=== PATIENT | female | born 1990 | race African-American/Black ===

== ENCOUNTER 2018-05-31 21:40 | Inpatient (IN) | payer OTHER ==
[2018-05-31 22:13] VITALS: BMI 32.8
--- NOTE | 2018-05-31 22:13 | PDOC.LDHP ---
Labor and Delivery H&P Chief complaint: contractions HPI: 27 y/o at 38w4d, patient of Dr. Marr, presents with ctx since yesterday after she was checked in the office. SVE at that time was 2cm. Denies VB, LOF, or decreased FM. ROS neg for HEENT, CV, pulm, GI, , neuro, psych, skin, musculoskeletal, or constitutional symptoms other than mentioned above. OB History Details: 2 prior term SVDs Current complications: none Past Medical History: None Current medications: pre-marva vitamins Previous surgical history: none Allergies/Adverse Reactions: Allergies Allergy/AdvReac Type Severity Reaction Status Date / Time No Known Allergies Allergy Verified 05/31/18 22:05 Social history: none - Physical Exam Vital signs reviewed and normal: yes General: NAD, resting Lungs: nonlabored breathing Abdomen: gravid Extremeties: no edema FHT: category 2 (160s, min to mod variability, +accel, ?decels) Hooper contractions every: 2 mins - Vaginal Exam cm dilated: 4 Effacement: 75% Station: -2 - OB Labs GBS: positive - Assessment L&D Assessment: term patient in labor tachycardia despite liter bolus. Admit for labor/augmentation. - Plan Plan: admit to L&D, labor augmentation if indicated, GBS antibiotic prophylaxis , informed consent obtained, anesthesia consult for pain management
[2018-05-31] MEDS ORDERED: Ondansetron PF 4 MG/2 ML Vial IVP PRN (23:51)
[2018-05-31] MEDS ORDERED: HYDROcodone/Acetaminophen 5/325 mg Tablet PO PRN ×2 (23:51)
[2018-05-31] MEDS ORDERED: Lidocaine 1% (PF) 30 ML VIAL SC PRN (23:51)
[2018-05-31] MEDS ORDERED: Carboprost 250 MCG/ML AMP IM PRN (23:51)
[2018-05-31] MEDS ORDERED: Promethazine HCl 25 MG/ML VIAL IM PRN (23:51)
[2018-05-31] MEDS ORDERED: Acetaminophen 500 MG TAB PO PRN (23:51)
[2018-05-31] MEDS ORDERED: Misoprostol 200 MCG TAB PR PRN (23:51)
[2018-05-31] MEDS ORDERED: Diphenoxylate HCl/Atropine Tablet PO PRN ×2 (23:51)
[2018-05-31] MEDS ORDERED: Methylergonovine 0.2 MG/ML VIAL IM PRN (23:51)
[2018-05-31] MEDS ORDERED: Butorphanol Tartrate 1 MG/ML VIAL SLOW IVP PRN (23:51)
[2018-05-31] MEDS ORDERED: Ibuprofen 800 MG TAB PO PRN (23:51)
[2018-06-01 00:06] LABS: Hemoglobin 10.4 g/dL (12.0-16.0); Mean Corpuscular HGB CONC 31.8 g/dL (32.0-36.0); Mean Corpuscular Hemoglobin 25.3 pg (27.0-31.0); Mean Corpuscular Volume 79.6 fL (78.0-98.0); Mean Platelet Volume 10.3 fL (7.4-10.4); Platelet Count 259 thou/uL (130-400); RBC Distribution Width 18.9 % (11.5-14.5); Red Blood Cell (RBC) Count 4.11 mill/uL (4.20-5.40); White Blood Cell (WBC) Count 12.7 thou/uL (4.8-10.8)
[2018-06-01] MEDS ORDERED: Penicillin G Potassium 5 MILL.UNITS in Sodium Chloride 0.9% 100 ML IVPB SCH (00:30)
[2018-06-01 00:46] LABS: Syphilis Antibody Nonreactive (Nonreactive); Syphilis Antibody Index 0.04 S/CO (<1.00 Non-Reactive)
[2018-06-01] MEDS: Lactated Ringer's 1,000 ML IV SCH ×2 (01:16→10:00)
[2018-06-01 01:28] LABS: HBSAg Index 0.18 S/CO (0-0.99); Hep B Surf Ag Non-Reactive S/CO (NonReactive)
[2018-06-01] MEDS ORDERED: NS w/ Oxytocin 10 units 500 ML IVPB SCH (03:00)
[2018-06-01] MEDS ORDERED: Fentanyl 4 mcg/Bup 0.1% Cadd 100 ML ONE (03:50)
[2018-06-01] MEDS ORDERED: Lidocaine 1.5% w/Epi 1:200K 30 ML VIAL (Epid Use) ONE (04:02)
[2018-06-01] MEDS: Penicillin G 2.5 MILL.units 2.5 MILL.UNITS in Premix Bag 1 BAG IVPB SCH ×3 (05:18→15:42)
[2018-06-01] MEDS ORDERED: Acetaminophen 325 MG TAB PO PRN (05:20)
[2018-06-01] MEDS ORDERED: Eucerin (Mineral Oil/Petrolatum,White) 30 gm Jar TOP PRN (05:20)
[2018-06-01] MEDS ORDERED: diphenhydrAMINE 50 MG/ML VIAL IVP PRN (05:20)
[2018-06-01] MEDS ORDERED: Lactated Ringer's 500 ML IV PRN (05:20)
[2018-06-01] MEDS ORDERED: Ondansetron PF 4 MG/2 ML Vial IVP PRN ×2 (05:20→15:33)
[2018-06-01] MEDS ORDERED: Naloxone HCl 0.4 mg/ml Vial IVP PRN ×2 (05:20)
[2018-06-01] MEDS ORDERED: Promethazine HCl 25 MG/ML VIAL IM PRN (05:20)
[2018-06-01] MEDS ORDERED: ePHEDrine/0.9% NaCl/PF SYRINGE 50 mg/10 ml SLOW IVP PRN (05:20)
[2018-06-01] MEDS ORDERED: Fentanyl 4 mcg/Bupivacaine 0.1% Cassette 100 ML EPIDURAL SCH (05:30)
[2018-06-01] MEDS ORDERED: Communication Order-Pharmacy FS SCH (05:30)
[2018-06-01 05:54] LABS: Amphetamine Not Detected (NotDetected); Barbiturates Screen Not Detected (NotDetected); Benzodiazepine Screen Not Detected (NotDetected); Cocaine Metabolite Screen Not Detected (NotDetected); Medtox Control Line Valid? VALID (VALID); Medtox Reader # READER 4; Methadone Not Detected (NotDetected); Methamphetamine Not Detected (NotDetected); Opiate Screen Not Detected (NotDetected); Oxycodone Screen Not Detected (NotDetected); Phencyclidine (PCP) Not Detected (NotDetected); THC/Cannabinoid Screen Not Detected (NotDetected); Tricyclic Screen Not Detected (NotDetected)
[2018-06-01] MEDS ORDERED: Famotidine/PF 20 mg/2ml Vial ONE (10:26)
[2018-06-01] MEDS ORDERED: Famotidine 20 MG TAB PO SCH ×2 (10:45→21:00)
[2018-06-01] MEDS ORDERED: Bupivacaine HCl 0.5%/Epinephrine 1:200,000/PF 30 ml Vial ONE (11:11)
[2018-06-01] MEDS ORDERED: ePHEDrine/0.9% NaCl/PF SYRINGE 50 mg/10 ml ONE (11:11)
[2018-06-01] MEDS: NS / Oxytocin 40 units/1000ml 1,000 ML IV PRN ×2 (12:54→14:35)
[2018-06-01] MEDS ORDERED: Milk Of Magnesia 30 ML UDCUP PO PRN (15:33)
[2018-06-01] MEDS ORDERED: Benzocaine/Menthol 20-0.5% 60 ML CAN TOP PRN (15:33)
[2018-06-01] MEDS ORDERED: HYDROcodone/Acetaminophen 5/325 mg Tablet PO PRN (15:33)
[2018-06-01] MEDS ORDERED: diphenhydrAMINE 25 MG CAP PO PRN (15:33)
[2018-06-01] MEDS ORDERED: Lanolin Ointment 7 GM TUBE TOP PRN (15:33)
[2018-06-01] MEDS ORDERED: NS / Oxytocin 40 units/1000ml 1,000 ML IV SCH (15:33)
[2018-06-01] MEDS ORDERED: Bisacodyl 10 MG SUPP PR PRN (15:33)
[2018-06-01] MEDS: Ferrous Sulfate 325 MG TAB PO SCH (16:32)
[2018-06-01] MEDS: Ibuprofen 800 MG TAB PO SCH ×2 (16:36→19:28)
[2018-06-01] MEDS: Docusate Calcium (SURFAK) 240 MG CAP PO SCH (19:28)
[2018-06-02] MEDS: Ibuprofen 800 MG TAB PO SCH ×2 (03:07→14:15)
[2018-06-02] MEDS: HYDROcodone/Acetaminophen 5/325 mg Tablet PO PRN ×3 (03:11→17:18)
[2018-06-02 03:42] VITALS: TEMP 98.4
[2018-06-02 05:58] LABS: Hemoglobin 9.7 g/dL (12.0-16.0); Mean Corpuscular HGB CONC 31.3 g/dL (32.0-36.0); Mean Corpuscular Hemoglobin 25.4 pg (27.0-31.0); Mean Corpuscular Volume 81.2 fL (78.0-98.0); Mean Platelet Volume 9.9 fL (7.4-10.4); Platelet Count 225 thou/uL (130-400); RBC Distribution Width 18.9 % (11.5-14.5); Red Blood Cell (RBC) Count 3.82 mill/uL (4.20-5.40); White Blood Cell (WBC) Count 12.5 thou/uL (4.8-10.8)
[2018-06-02] MEDS ORDERED: Prenatal Vitamin 1 TAB PO SCH (09:00)
[2018-06-02] MEDS: Ferrous Sulfate 325 MG TAB PO SCH ×2 (09:34→17:18)
[2018-06-02] MEDS: Docusate Calcium (SURFAK) 240 MG CAP PO SCH (09:34)
[2018-06-02 10:35] VITALS: BP 99/60
== END 2018-06-02 18:49 | disposition home or self-care (01) | DRG 807 ==
LOC: L&D/OP 21:40 → L&D 23:57 → 3SW 06-01 15:23
PROVIDERS: ADMIT Family Medicine; ATTEND Family Medicine
PROC: 10907ZC Drainage of Amniotic Fluid, Therapeutic from Products of Conception, Via Natural or Artificial Opening (ICD-10-PCS; 2018-05-31)
PROC: 3E033VJ Introduction of Other Hormone into Peripheral Vein, Percutaneous Approach (ICD-10-PCS; 2018-05-31)
PROC: 10E0XZZ Delivery of Products of Conception, External Approach (ICD-10-PCS; principal; 2018-06-01)
DX: O75.89 Other specified complications of labor and delivery (principal); Z37.0 Single live birth; Z3A.38 38 weeks gestation of pregnancy; R55 Syncope and collapse
CPT/HCPCS: 36415; 36416; 51702; 80306; 85027; 86780; 86850; 86900; 86901; 87340; 93005; 93010; 99285; J0670; J2001; J2405; J2540; J7050; S0028

== ENCOUNTER 2018-07-16 08:05 | Day surgery (SDC) | payer OTHER ==
[2018-07-15 13:15] VITALS: BMI 29.8
[2018-07-16] MEDS ORDERED: Ketorolac Tromethamine 30 MG/ML VIAL ONE (08:20)
[2018-07-16 09:32] LABS: #Basophils 0.1 thou/uL (0.0-0.2); #Eosinphils 0.1 thou/uL (0.0-0.7); #Lymphocytes 2.3 thou/uL (1.20-3.40); #Monocytes 0.5 thou/uL (0.11-0.59); #Neutrophils 4.2 thou/uL (1.40-6.50); %Basophils 1.1 % (0.0-1.0); %Lymphocytes 32.3 % (21.0-51.0); %Monocytes 6.3 % (0.0-10.0); %Neutrophils 58.3 % (42.0-75.0); Hemoglobin 12.2 g/dL (12.0-16.0); Mean Corpuscular HGB CONC 31.2 g/dL (32.0-36.0); Mean Corpuscular Hemoglobin 26.5 pg (27.0-31.0); Mean Corpuscular Volume 84.9 fL (78.0-98.0); Mean Platelet Volume 11.5 fL (7.4-10.4); Platelet Count 210 thou/uL (130-400); Red Blood Cell (RBC) Count 4.59 mill/uL (4.20-5.40); White Blood Cell (WBC) Count 7.2 thou/uL (4.8-10.8)
[2018-07-16 09:45] LABS: Anion Gap 13 mmol/L (10-20); BUN (Urea Nitrogen) 14 mg/dL (7.0-18.7); Calc. Creatinine Clearance 125 mL/min (70-130); Calcium 9.4 mg/dL (7.8-10.44); Carbon Dioxide 26 mmol/L (22-29); Chloride 105 mmol/L (98-107); Estimated GFR-MDRD Greater than 90; Glucose 84 mg/dL (70-105); Potassium 4.1 mmol/L (3.5-5.1); Sodium 140 mmol/L (136-145)
[2018-07-16] MEDS ORDERED: Bupivacaine/Epinephrine 0.25% 30 ML VIAL ONE (09:53)
[2018-07-16] MEDS ORDERED: Fentanyl 100 MCG/2 ML VIAL ONE (10:10)
[2018-07-16] MEDS ORDERED: Ondansetron HCl/PF 4 MG/2 ML Vial IVP PRN (11:30)
[2018-07-16] MEDS ORDERED: Promethazine HCl 25 MG/ML VIAL IM/IV PRN (11:30)
[2018-07-16] MEDS ORDERED: HYDROcodone/Acetaminophen 5/325 mg Tablet ONE (12:32)
[2018-07-16] MEDS ORDERED: Ondansetron PF 4 MG/2 ML Vial ONE (12:59)
[2018-07-16] MEDS ORDERED: Dexamethasone 20 MG/5 ML VIAL ONE (12:59)
[2018-07-16] MEDS ORDERED: PROPOFOL 200 MG/20 ML VIAL ONE (12:59)
[2018-07-16] MEDS ORDERED: Lidocaine 1% PF 5 ML VIAL ONE (12:59)
[2018-07-16] MEDS ORDERED: Ondansetron ODT 4 MG TAB ONE (13:27)
--- NOTE | 2018-07-17 00:34 | OP ---
DATE OF PROCEDURE: 07/16/2018 PREOPERATIVE DIAGNOSIS: Incarcerated umbilical hernia. POSTOPERATIVE DIAGNOSIS: Incarcerated umbilical hernia. OPERATION PERFORMED: Repair of incarcerated umbilical hernia with mesh patch using a 4.3 cm Ventralex mesh patch. ANESTHESIA: General endotracheal. INDICATIONS: The patient is a 27-year-old black female. She has an infraumbilical mass that was easily palpable and not reducible consistent with a hernia. She was taken to the operating at this time for repair. DESCRIPTION OF OPERATION: Informed consent was obtained. The patient was taken to the operating room where general endotracheal anesthesia was obtained with the patient in supine position. Abdomen was prepped with ChloraPrep, draped in sterile fashion. Local anesthetic was infiltrated using 0.25% Marcaine with epinephrine. A curvilinear infraumbilical incision was created. Dissection was carried through skin and subcutaneous tissue. There was a large hernia mass just below the skin. This was on the inferior aspect of the umbilicus. This was dissected circumferentially and dissected down to the opening of the fascia. The fascial defect was circumscribed with cautery. The herniated contents were not reducible. It was all omentum. This was amputated using electrocautery and the contents were reduced. Dissection was carried out on the anterior and posterior aspect of the fascia. The umbilicus was dissected off the fascia and reflected superiorly. 4.3 cm Ventralex patch was obtained and placed within the preperitoneal space and pulled snugly against the posterior aspect of the fascia. The tails of the mesh were secured to the anterior fascia superiorly and inferiorly using single interrupted sutures of 0 Prolene. The lateral aspects of the defect were closed with 2 additional single interrupted sutures of 0 Prolene, incorporating bites of the anterior leaflet of the mesh patch. The umbilicus was secured down to the fascia with 2 interrupted sutures of 3-0 Vicryl. The wound was closed in layers with 3-0 and 4-0 Monocryl. Additional local anesthetic was instilled in the wound during closure. Dermabond was placed externally. A compression dressing was applied using cotton balls and an occlusive dressing. There were no complications. BLOOD LOSS: Negligible. The patient tolerated the procedure well and was taken to recovery room in stable condition. Job ID: [id number]
== END 2018-07-16 13:35 | disposition home or self-care (01) ==
LOC: SDC 08:05
PROVIDERS: ATTEND Specialist
PROC: 0WUF0JZ Supplement Abdominal Wall with Synthetic Substitute, Open Approach (ICD-10-PCS; principal; 2018-07-16)
DX: K42.0 Umbilical hernia with obstruction, without gangrene (principal); F41.9 Anxiety disorder, unspecified; F32.9 Major depressive disorder, single episode, unspecified; Z79.1 Long term (current) use of non-steroidal anti-inflammatories (NSAID); Z79.899 Other long term (current) drug therapy; Z88.5 Allergy status to narcotic agent
CPT/HCPCS: 36415; 80048; 85025; J0131; J1885; J3010; Q0162

== ENCOUNTER 2019-03-20 10:34 | Emergency (ER) | payer OTHER | END 2019-03-20 11:47 | disposition home or self-care (01) | LOC: ERS 10:34 | DX: J02.9 Acute pharyngitis, unspecified (principal); F32.9 Major depressive disorder, single episode, unspecified; F41.9 Anxiety disorder, unspecified | CPT/HCPCS: 99283 ==